=== PATIENT | female | born 1990 | race Caucasian/White ===

== ENCOUNTER 2023-10-07 08:43 | Inpatient (IN) ==
[2023-10-07] MEDS ORDERED: LIDOCAINE 1% LOCAL 20 ML VIAL INFIL PRN (09:09)
[2023-10-07] MEDS ORDERED: OXYTOCIN 30 UNITS/NSS 30 UNITS/500 ML BAG IV PRN ×2 (09:09→12:08)
[2023-10-07] MEDS ORDERED: LACTATED RINGER'S 1,000 ML IV PRN (09:09)
[2023-10-07] MEDS ORDERED: fentANYL 2 MCG/ML BUPIVacaine 0.125%-NSS 100ML BAG ONE (09:29)
[2023-10-07] MEDS ORDERED: BUPIVACAINE 0.25% PF 30 ML VIAL ONE (09:29)
[2023-10-07] MEDS ORDERED: fentaNYL citrate PF 100 MCG/2 ML VIAL ONE (09:29)
[2023-10-07] MEDS ORDERED: LIDOCAINE 2%/EPINEPHRINE 1:200,000 20 ML PF ONE (09:29)
[2023-10-07] MEDS ORDERED: SODIUM CHLORIDE 0.9% PF INJ 10 ML VIAL ONE (09:29)
[2023-10-07] MEDS ORDERED: ePHEDrine sulfate 50 MG/ML AMP ONE (09:29)
[2023-10-07] MEDS ORDERED: NALOXONE HCL 0.4 MG/1 ML VIAL/CARP IV PRN (09:33)
[2023-10-07] MEDS ORDERED: BUPIVACAINE 0.25% PF 30 ML VIAL EPI PRN (09:33)
[2023-10-07] MEDS ORDERED: SODIUM CHLORIDE 0.9% PF INJ 10 ML VIAL EPI STA (09:33)
[2023-10-07] MEDS ORDERED: LIDOCAINE 2% MPF LOCAL 5 ML VIAL EPI PRN (09:33)
[2023-10-07] MEDS ORDERED: ePHEDrine sulfate 50 MG/ML AMP IV PRN (09:33)
[2023-10-07] MEDS ORDERED: SODIUM CHLORIDE 0.9% PF INJ 10 ML VIAL EPI PRN (09:33)
[2023-10-07] MEDS ORDERED: diphenhydrAMINE 50 MG/ML VIAL IV PRN (09:33)
[2023-10-07] MEDS ORDERED: NALBUPHINE HCL 5 MG in SYRINGE 0 ML IV PRN (09:33)
[2023-10-07] MEDS ORDERED: fentaNYL citrate PF 100 MCG/2 ML VIAL EPI STA (09:33)
[2023-10-07] MEDS ORDERED: NALOXONE HCL 1 MG in SODIUM CHLORIDE 0.9% 1,000 ML IV PRN (09:33)
[2023-10-07] MEDS ORDERED: BUPIVACAINE 0.25% PF 30 ML VIAL EPI STA (09:33)
[2023-10-07] MEDS ORDERED: ROPIVACAINE 0.5% PF 5 MG/ML 20 ML VIAL EPI PRN (09:33)
[2023-10-07] MEDS ORDERED: ONDANSETRON INJ 2 MG/ML 2 ML VIAL IV PRN (09:33)
[2023-10-07] MEDS ORDERED: fentaNYL citrate PF 100 MCG/2 ML VIAL EPI PRN (09:33)
[2023-10-07] MEDS ORDERED: fentANYL 2 MCG/ML BUPIVacaine 0.125%-NSS 100ML BAG EPI PRN (09:33)
[2023-10-07] MEDS ORDERED: LIDOCAINE 2%/EPINEPHRINE 1:200,000 20 ML PF EPI STA (09:33)
[2023-10-07 09:39] LABS: Hematocrit (blood only) 34.5 % (37.0-47.0); Hemoglobin 11.5 g/dl (12.0-16.0); Mean Corpuscular Hemoglobin 28.2 pg (25.0-34.0); Mean Corpuscular Hgb Conc 33.3 g/dL (32.0-36.0); Mean Corpuscular Volume 84.6 fL (80.0-100.0); Mean Platelet Volume 10.3 fL (9.4-12.4); Platelet Count 271 K/uL (130-400); RDW Coefficient of Variation 13.6 % (11.5-14.5); RDW Standard Deviation 41.7 fL (36.4-46.3); Red Blood Count 4.08 M/uL (4.20-5.40); White Blood Count 13.69 K/ul (4.8-10.8)
--- NOTE | 2023-10-07 09:43 | Anesthesiology Consultation ---
Date of Service October 07, 2023 Assessment & Plan Chart Review Chart Review: Acceptable Risk for Labor Epidural Consults Requested none ASA ASA2 Proposed Anesthesia Anesthesia Type: Labor Epidural Risk / Benefits Reviewed With: PT / POA / Parent / Guardian, Accepts Plan and Informed Consent Obtained History Height/Weight Height: 5 ft 6 in Weight: 79.199 kg Allergies Allergy/AdvReac Type Severity Reaction Status Date / Time No Known Allergies Allergy Verified 10/07/23 08:58 Medications Home Medications Medication Instructions Recorded Confirmed Last Taken cholecalciferol (vitamin D3) PO 03/13/23 10/02/23 Unknown [Dialyvite Vitamin D] prenat.vits,estrella,[id number] 1 tab PO DAILY 03/13/23 10/07/23 10/06/23 20:00 acetone (urine) test (Ketone Urine #50 ea 08/06/23 10/02/23 Unknown Test strips) blood sugar diagnostic (OneTouch #150 ea 08/06/23 10/02/23 Unknown Verio test strips) lancets 33 gauge #150 ea 08/06/23 10/02/23 Unknown blood-glucose meter (OneTouch #1 ea 08/07/23 10/02/23 Unknown Verio Flex Meter) RSV vac, preF A and preF B(PF) 120 0.5 ml IM ONCE #1 ea 08/15/23 10/02/23 Unknown mcg/0.5 mL IM solution (Abrysvo) Active Medications Generic Name Dose Route Start Last Admin Trade Name Freq PRN Reason Stop Dose Admin Lactated Ringer's 1,000 mls @ 125 mls/hr 10/07/23 09:09 10/07/23 09:00 Lr IV 10/09/23 09:08 999 mls/hr .Q8H PRN Administration L&D Protocol Protocol Past Medical History Medical History Gestational diabetes History of chicken pox Exercise / Class Metabolic Activity II 4-5 Yardwork/Stairs/Walk up hill Past Family History Family History Father Myocardial infarction Grandfather (Paternal) Myocardial infarction Denies family history of Ovarian cancer Breast cancer Colorectal cancer Uterine cancer Stroke Past Surgical History Surgical History (Reviewed 10/07/23 @ 09:43 by TALIA Marin S/P wisdom tooth extraction Hx of tonsillectomy Past Anesthesia History No Hx of Anesthesia Complications and No Family Hx of Anesthesia Complications History of PONV No Hx of PONV and No Hx of Motion Sickness Social History Smoking Status: Never smoker Do You Dip or Chew Tobacco: No Hx Alcohol Use: Yes Hx Substance Use: No substance use type: does not use Physical Exam Vital Signs Last Vital Signs Temp 97.7 F 10/07/23 09:02 Pulse 59 L 10/07/23 09:02 Resp 18 10/07/23 09:02 BP 123/64 10/07/23 09:02 ENMT Mouth: no dentition abnormality Thyromental Distance: > or= 3.5 Finger Breadths Mallampati Class: II Neck normal visual inspection Respiratory normal respiratory effort Auscultation: lungs clear to auscultation bilaterally Cardiovascular Rate/Rhythm: regular rate and regular rhythm Testing Laboratory Results 10/07/23 09:26 10/07/23 09:07 POC Glucose 136 H
--- NOTE | 2023-10-07 09:51 | History & Physical Report ---
Date of Service October 07, 2023 Assessment & Plan (1) Normal labor: (2) Gestational diabetes mellitus (GDM) affecting , antepartum: Plan admit iv labs. epidural for pain mgmt, fhts categ1. arom done, will begin 2nd stage. Admission and Anticipated Discharge Date Admission Date: October 07, 2023 History of Present Illness Chief Complaint: regular ctx Primary Care Provider: Elías Hill 33yo at 39 wks ega presents to L&D with regular contractions. Patient called and noted some bloody mucus this am and then ctx that were regular and painful and advised to come to L&D for labor check. Nursing cx check 6cm, with regular ctx noted. Desires epidural. PNC c/b GDM diet controlled. PNL rh pos, ri, gbs neg. OB/GYNH: g1, normal paps, no stds Allergies Allergy/AdvReac Type Severity Reaction Status Date / Time No Known Allergies Allergy Verified 10/07/23 08:58 Home Medications Medication Instructions Recorded Confirmed Type cholecalciferol (vitamin D3) PO 03/13/23 10/02/23 History [Dialyvite Vitamin D] prenat.vits,estrella,[id number] 1 tab PO DAILY 03/13/23 10/07/23 History acetone (urine) test (Ketone Urine #50 ea 08/06/23 10/02/23 Rx Test strips) blood sugar diagnostic (OneTouch #150 ea 08/06/23 10/02/23 Rx Verio test strips) lancets 33 gauge #150 ea 08/06/23 10/02/23 Rx blood-glucose meter (OneTouch #1 ea 08/07/23 10/02/23 Rx Verio Flex Meter) RSV vac, preF A and preF B(PF) 120 0.5 ml IM ONCE #1 ea 08/15/23 10/02/23 Rx mcg/0.5 mL IM solution (Abrysvo) Patient History Medical History Gestational diabetes History of chicken pox Surgical History S/P wisdom tooth extraction Hx of tonsillectomy Family History Father Myocardial infarction Grandfather (Paternal) Myocardial infarction Denies family history of Ovarian cancer Breast cancer Colorectal cancer Uterine cancer Stroke Social History (Updated 03/13/23 @ 13:39 by Gabriela Otero) Smoking Status: Never smoker Do You Dip or Chew Tobacco: No; Hx Alcohol Use: Yes Hx Substance Use: No Preferred Language: [employer] Professor Required: No Beliefs That Will Affect Care: None marital status: marital status details: Shana (32) [phone] Current Living Situation: Spouse Current Living Situation Comment: lives with spouse, 2 dogs, 2 cats, mother in law to change litter. current occupational status: employed current occupation: Teacher., Feels Safe at Home: Yes Safety Concerns: Feels Safe At This Time Review of Systems as per Subjective / HPI Physical Exam Constitutional: WD/WN, vitals as above Respiratory: normal respiratory effort, lungs clear to auscultation Cardiovascular: Rate/Rhythm: regular rate and regular rhythm Gastrointestinal (Abdomen): soft gravid nt Musculoskeletal: no edema nontender calves Neurologic: grossly normal Psychiatric: A+Ox3, euthymic affect Genitourinary: Manual OB Exam: + cervical dilation 10 cm, + cervical effacement 100%, + station + 1 and + amniotic fluid (AROM) clear OB Exam Monitor Tracing: + external FHT monitor used, + external uterine monitor used (q2), + category I and + normal FHT variability Results & Data Vital Signs (Past 12 Hours) Vital Signs Temp Pulse Resp BP 10/07/23 09:02 97.7 F 59 L 18 123/64 10/07/23 08:53 59 L 123/64 Coding Level of Care Code None Diagnoses Normal labor O80; Z37.9 Gestational diabetes mellitus (GDM) affecting , antepartum O24.419
--- NOTE | 2023-10-07 11:59 | Delivery Summary ---
Vaginal Delivery Summary Date of Service October 07, 2023 Vaginal Delivery Summary and 3rd Degree LAC (partial) The patient dilated to complete and pushed to deliver a viable female Apgars 8, 9 via over partial 3rd degree perineal laceration. Mouth and nose bulb suctioned at perineum. Shoulders and body delivered with ease. was vigorous and crying at . Cord clamped at 30 seconds of life and infant to maternal abdomen where the cord was then doubly clamped and cut. Placenta delivered spontaneously and intact, three-vessel cord. Hemostasis achieved with dilute pitocin and uterine massage and drainage of the bladder for approximately 200 cc under sterile conditions. Laceration repaired in layers with 2-0 and 3-0 vicryl. Left labial laceration reapproximated with 4-0 vicryl. Cervix and sulci intact. EBL 300 cc. Mother and baby stable in recovery[place] [facility] [place] Charge Delivery Type Details: and 3rd Degree LAC (partial)
[2023-10-07] MEDS ORDERED: HYDROCORTISONE ACETATE 25 MG SUPP PR PRN (12:08)
[2023-10-07] MEDS ORDERED: bisacodyL 10 MG SUPP PR PRN (12:08)
[2023-10-07] MEDS ORDERED: DIPHTHERIA/TETANUS/PERTUSSIS Vaccine (Tdap, Age 7+yrs) 0.5mL SYR/VL IM ONE (12:08)
[2023-10-07] MEDS ORDERED: BENZOCAINE 20% SPRY 85 APPLN/85 GM CAN EXT PRN (12:08)
[2023-10-07] MEDS ORDERED: oxyCODONE/ACETAMINOPHEN 5mg/325mg TAB PO PRN (12:08)
[2023-10-07] MEDS ORDERED: OXYTOCIN 20 UNITS/LR 1,002 ML IV SCH (12:15)
[2023-10-07] MEDS: IBUPROFEN 600 MG TAB PO PRN ×3 (12:19→22:01)
--- NOTE | 2023-10-07 12:57 | Anesthesia Procedure Note ---
Date of Service October 07, 2023 Anesthesia Post Epidural Note Vital Signs Vital Signs: Temp Pulse Resp BP Pulse Ox 36.5 C 68 18 111/53 L 99 10/07/23 09:02 10/07/23 12:47 10/07/23 12:30 10/07/23 12:47 10/07/23 11:55 Notes Mental Status: alert / awake / arousable Epidural: Removed without complications and With tip intact
[2023-10-07] MEDS: ACETAMINOPHEN 325 MG TAB PO PRN (17:29)
[2023-10-07] MEDS: DOCUSATE SODIUM 100 MG CAP PO SCH (20:58)
[2023-10-08] MEDS: ACETAMINOPHEN 325 MG TAB PO PRN ×3 (00:39→16:03)
[2023-10-08] MEDS: IBUPROFEN 600 MG TAB PO PRN ×5 (03:21→23:25)
--- NOTE | 2023-10-08 05:25 | Obstetrical Progress Note ---
Date of Service <Deep Garrido DO - Last Filed: 10/08/23 07:08> October 08, 2023 Assessment & Plan <Deep Garrido DO - Last Filed: 10/08/23 07:08> (1) care following vaginal delivery: 33 year old female, , PPD#1: Eating well, voiding well, ambulating well Vitals reviewed, WNL Pain well controlled with Tylenol and Motrin Routine post care - OOB, ambulation, diet progression as tolerated Will have 6 week follow up with Dr. Merritt Likely discharge tomorrow <Melissa Merritt MD, FACOG - Last Filed: 10/08/23 07:31> (1) care following vaginal delivery: Subjective <Deep Garrido DO - Last Filed: 10/08/23 07:08> Ambulation: ambulating normally Voiding: no voiding problems Passing Gas:: Yes Diet Tolerance:: regular diet Lochia:: Moderate Feeding Type:: breast feeding Pain well controlled with Tylenol and Motrin Review of Systems -Denies fever or chills -Denies dyspnea, chest pain, or palpitations -Denies dysuria -Denies headache or changes in vision Physical Exam <Deep Garrido DO - Last Filed: 10/08/23 07:08> General: Alert and oriented. No acute distress Cardiac: Regular rate and rhythm, no murmurs appreciated Respiratory: Lungs clear to auscultation bilaterally, No increased work of breathing Abdominal: Soft, non-tender, non-distended. Bowel sounds present. Uterus: Uterine fundus firm, palpable below umbilicus Extremities: No lower extremity edema, calves non-tender bilaterally Results & Data <Deep Garrido DO - Last Filed: 10/08/23 07:08> Vital Signs (Past 12 Hours) Vital Signs Temp Pulse Resp BP BP Pulse Ox O2 Del Method 10/08/23 02:40 36.7 C 64 18 110/70 97 Room Air 10/07/23 23:41 36.6 C 63 18 119/70 97 Room Air 10/07/23 19:40 37.0 C 69 16 111/67 97 Room Air Supervising Physician <Melissa Merritt MD, FACOG - Last Filed: 10/08/23 07:31> Co-Signing Physician Notes Resident Physician Supervision Note: I was present with Dr. Garrido during the history and exam. I discussed the case with the resident and agree with the findings and plan as documented in the note. Any exceptions or clarifications are listed here: stable, routine care. rh pos, ri, breast feeding. abd soft ff 2 down nt, ext nt calves. cont current care. Documented By: Melissa Merritt MD, FACOG Resident Activity Tracking <Deep Garrido, DO - Last Filed: 10/08/23 07:08> Resident Involvement: Resident Care Provided Care Provided: OB Delivery
[2023-10-08] MEDS: PRENATAL VITAMIN 1 TAB PO SCH (08:47)
[2023-10-08] MEDS: DOCUSATE SODIUM 100 MG CAP PO SCH ×2 (08:47→20:13)
--- NOTE | 2023-10-09 06:57 | Obstetrical Progress Note ---
Date of Service <Deep Garrido DO - Last Filed: 10/09/23 07:26> October 09, 2023 Assessment & Plan <Deep Garrido DO - Last Filed: 10/09/23 07:26> (1) care following vaginal delivery: 33 year old female, , PPD#2: Eating well, voiding well, ambulating well Vitals reviewed, WNL Pain well controlled with Motrin Routine post care - OOB, ambulation, diet progression as tolerated Will have 6 week follow up with Dr. Merritt <Victor Hugo Troncoso MD - Last Filed: 10/09/23 08:26> (1) care following vaginal delivery: Subjective <Deep Garrido DO - Last Filed: 10/09/23 07:26> Ambulation: ambulating normally Voiding: no voiding problems Passing Gas:: Yes Diet Tolerance:: regular diet Lochia:: Small Feeding Type:: breast feeding Pain well controlled with Motrin Review of Systems -Denies fever or chills -Denies dyspnea, chest pain, or palpitations -Denies dysuria -Denies headache or changes in vision Physical Exam <Deep Garrido DO - Last Filed: 10/09/23 07:26> General: Alert and oriented. No acute distress Cardiac: Regular rate and rhythm, no murmurs appreciated Respiratory: Lungs clear to auscultation bilaterally, No increased work of breathing Abdominal: Soft, non-tender, non-distended. Bowel sounds present. Uterus: Uterine fundus firm, palpable below umbilicus Extremities: No lower extremity edema, calves non-tender bilaterally Results & Data <Deep Garrido DO - Last Filed: 10/09/23 07:26> Vital Signs (Past 12 Hours) Vital Signs Temp Pulse Resp BP Pulse Ox O2 Del Method 10/08/23 23:22 36.7 C 60 18 116/72 98 Room Air 10/08/23 20:02 36.8 C 73 18 108/62 Supervising Physician <Victor Hugo Troncoso MD - Last Filed: 10/09/23 08:26> Co-Signing Physician Notes Patient seen with resident and agree with the above findings and plan. Stable for discharge Resident Activity Tracking <Deep Garrido DO - Last Filed: 12/05/23 07:26> Resident Involvement: Resident Care Provided Care Provided: OB Delivery
[2023-10-09] MEDS: PRENATAL VITAMIN 1 TAB PO SCH (07:43)
[2023-10-09] MEDS: IBUPROFEN 600 MG TAB PO PRN (07:43)
[2023-10-09] MEDS: DOCUSATE SODIUM 100 MG CAP PO SCH (07:43)
[2023-10-09] MEDS: ACETAMINOPHEN 325 MG TAB PO PRN (07:44)
[2023-10-09 09:34] VITALS: BP 116/76; RESP 16; TEMP 97.9; O2SAT 99
[2023-10-09 09:36] VITALS: PULSE 60
== END 2023-10-09 13:00 | disposition home or self-care (01) | DRG 768 ==
LOC: OPB 08:43 → 4S1 08:44 → 4E2 14:55